=== PATIENT | male | born 1955 | race Hispanic/Latino ===

== ENCOUNTER 2016-08-03 01:09 | Inpatient (IN) | payer OTHER ==
[2016-08-03] MEDS ORDERED: TDAP Vaccine 0.5 mL Syr IM ONE (01:58)
[2016-08-03] MEDS ORDERED: Sodium Chloride 0.9% 1,000 ML IV STA (01:58)
--- NOTE | 2016-08-03 02:00 | ED PDOC ---
Upper Extremity Pain/Injury Time Seen by Provider: 08/03/16 01:53 Chief Complaint (Nursing): Upper Extremity Problem/Injury Chief Complaint (Provider): wrist injury History Per: Patient Additional Complaint(s): 61-year-old right-hand dominant male presents with pain and swelling to right wrist status post trip and fall while riding skateboard. Patient denies head injury or loss of consciousness. He tried to break his fall by placing right arm out in front of him causing injury to right wrist in the process. Patient came right emergency department after injury. He has severe pain to right wrist but denies any numbness or tingling. Past Medical History Reviewed: Historical Data, Nursing Documentation, Vital Signs Vital Signs: Last Vital Signs Temp 98.1 F 08/03/16 01:21 Pulse 78 08/03/16 01:21 Resp 18 08/03/16 01:21 BP 141/62 08/03/16 01:21 Pulse Ox 98 08/03/16 01:21 - Medical History PMH: No Chronic Diseases - Surgical History Surgical History: Appendectomy - Family History Family History: States: No Known Family Hx - Living Arrangements Living Arrangements: Alone - Social History Current smoker - smoking cessation education provided: No Alcohol: Social Drugs: Denies - Home Medications Home Medications: Ambulatory Orders Medication Instructions Recorded No Known Home Med 08/03/16 - Allergies Allergies/Adverse Reactions: Allergies Allergy/AdvReac Type Severity Reaction Status Date / Time No Known Allergies Allergy Verified 08/15/14 12:42 Review of Systems ROS Statement: Except As Marked, All Systems Reviewed And Found Negative Musculoskeletal: Positive for: Other (right wrist injury s/p trip and fall ) Neurological: Positive for: Other (denies head injury or LOC) Physical Exam - Reviewed Nursing Documentation Reviewed: Yes Vital Signs Reviewed: Yes - Physical Exam Appears: Positive for: Well, Non-toxic, No Acute Distress Head Exam: Positive for: ATRAUMATIC, NORMAL INSPECTION Skin: Negative for: Rash Eye Exam: Positive for: Normal appearance Neck: Positive for: Painless ROM Cardiovascular/Chest: Positive for: Regular Rate, Rhythm Respiratory: Positive for: Normal Breath Sounds Extremity: Positive for: Other (obvious deformity noted to right wrist, palpable radial pulse, normal cap refill, normal distal sensation, superficial laceration noted to palmar aspect of right wrist with no active bleeding) Neurologic/Psych: Positive for: Alert, Oriented - Laboratory Results Result Diagrams: 08/03/16 04:29 08/03/16 04:29 - ECG Interpretation Of ECG: NSR 78 bpm, no acute finding, reviewed by PA and ED attending. O2 Sat by Pulse Oximetry: 98 Pulse Ox Interpretation: Normal - Other Rad Right wrist x-ray X-Ray: Interpreted by Me, Viewed By Me X-Ray Interpretation: impacted communited distal radius fracture CT right wrist X-Ray: Read By Radiologist X-Ray Interpretation: see below Bedside chest X-Ray: Interpreted by Me, Viewed By Me X-Ray Interpretation: no acute finding Medical Decision Making Medical Decision Makin61 year old male with right wrist injury Plan: CBC CMP PT/PTT Type and Screen X-ray right wrist and forearm CT right wrist IVF IV zofran and morphine CXR EKG IV ancef CT: There is subcutaneous soft tissue swelling and a small amount of subcutaneous air along the plantar aspect of the wrist. There are mild degenerative changes. There is a fracture of the ulnar styloid with a few tiny displaced fragments. There is a comminuted fracture of the distal radial diaphysis and metaphysis with dorsal angulation. (Colles' fracture). There is approximately 5 mm of impaction. There is approximately 4 mm of dorsal displacement of the distal radius. There are no fractures of the carpal bones identified. he visualized portions of the metacarpals appear intact. There are degenerative changes in the osseous structures. Impression: Comminuted distal radial fracture with dorsal angulation and impaction. Ulnar styloid fracture. PMD is Dr. Domingo in [facility]. Dr. Manjarrez, hospitalist to admit Case was d/w Dr. Pérez who states he will see patient in AM Patient is aware of and agrees with admission. Procedures - Splinting Location: Right wrist Pre-Made Type: sugar tong fiberglass splint secured with yoon wraps Progress: Wound to wrist was cleansed with NS and bacitracin and non-stick bandage applied prior to placement of orthoglass splint. Disposition - Clinical Impression Clinical Impression: Wrist fracture, right - Patient ED Disposition Is Patient to be Admitted: Yes - Disposition Disposition Time: 05:46 Condition: FAIR - Pt Status Changed To: Hospital Disposition Of: Inpatient - Admit Certification Admit to Inpatient:: After my assessment, the patient will require hospitalization for at least two midnights. This is because of the severity of symptoms shown, intensity of services needed, and/or the medical risk in this patient being treated as an outpatient. - POA Present On Arrival: None Results - Lab Results Lab Results: 08/03/16 08/03/16 04:29 04:29 WBC 7.8 RBC 5.16 Hgb 15.9 Hct 45.4 MCV 88.1 MCH 30.8 MCHC 34.9 RDW 12.5 Plt Count 147 MPV 8.4 Neut % (Auto) 70.3 Lymph % (Auto) 20.2 [place] % (Auto) 7.8 Eos % (Auto) 0.7 Baso % (Auto) 1.0 Neut # 5.5 Lymph # 1.6 [place] # 0.6 Eos # 0.1 Baso # 0.1 Sodium 138 Potassium 4.3 Chloride 103 Carbon Dioxide 22 Anion Gap 17 BUN 19 Creatinine 1.0 Est GFR ( Amer) > 60 Est GFR (Non-Af Amer) > 60 Random Glucose 83 Calcium 9.5 Total Bilirubin 1.1 AST 61 H D ALT 50 Alkaline Phosphatase 72 Total Protein 7.3 Albumin 4.7 Globulin 2.7 Albumin/Globulin Ratio 1.7
--- NOTE | 2016-08-03 04:19 | CT ---
EXAM: CT Right Upper Extremity Without Intravenous Contrast, Wrist CLINICAL HISTORY: 61 years old, male; Injury or trauma; Fall; Initial encounter; Fracture, traumatic injury; Open fracture, severity classification not provided; Wrist; Right; Bone fracture not specified; Injury date: 08/03/16; Additional info: Assess wrist fracture TECHNIQUE: Axial computed tomography images of the right wrist without intravenous contrast. This CT exam was performed using one or more of the following dose reduction techniques: automated exposure control, adjustment of the mA and/or kV according to patient size, and/or use of iterative reconstruction technique. Coronal and sagittal reformatted images were created and reviewed. EXAM DATE/TIME: 08/03/2016 2:44 AM COMPARISON: No relevant prior studies available. FINDINGS: There is subcutaneous soft tissue swelling and a small amount of subcutaneous air along the plantar aspect of the wrist. There are mild degenerative changes. There is a fracture of the ulnar styloid with a few tiny displaced fragments. There is a comminuted fracture of the distal radial diaphysis and metaphysis with dorsal angulation (Colles' fracture). There is approximately 5 mm of impaction. There is approximately 4 mm of dorsal displacement of the distal radius. There are no fractures of the carpal bones identified. The visualized portions of the metacarpals appear intact. There are degenerative changes in the osseous structures. IMPRESSION: Comminuted distal radial fracture with dorsal angulation and impaction. Ulnar styloid fracture.
[2016-08-03 04:32] LABS: BASO # 0.1 K/uL (0.0-0.2); EOS # 0.1 K/uL (0.0-0.7); EOS % 0.7 % (0.0-4.0); HEMATOCRIT 45.4 % (35.0-51.0); LYMPH # 1.6 K/uL (1.0-4.3); LYMPH % 20.2 % (20.0-40.0); MEAN CELL VOLUME 88.1 fl (80.0-94.0); MEAN CORPUSCULAR HEMOGLOBIN 30.8 pg (27.0-31.0); MEAN CORPUSCULAR HGB CONC 34.9 g/dL (33.0-37.0); MEAN PLATELET VOLUME 8.4 fl (7.2-11.7); MONO # 0.6 K/uL (0.0-0.8); MONO % 7.8 % (0.0-10.0); NEUT # 5.5 K/uL (1.8-7.0); NEUT % 70.3 % (50.0-75.0); NRBC % 0.1 % (0.0-0.0); RED CELL DISTRIBUTION WIDTH 12.5 % (11.5-14.5); WHITE BLOOD COUNT 7.8 K/uL (4.8-10.8)
[2016-08-03 04:43] LABS: ALB/GLOB RATIO 1.7 (1.0-2.1); ALKALINE PHOSPHATASE 72 U/L (38-126); ALT/SGPT 50 U/L (21-72); AST/SGOT 61 U/L (17-59); BILIRUBIN,TOTAL 1.1 mg/dl (0.2-1.3); BLOOD UREA NITROGEN 19 mg/dl (9-20); CALCIUM 9.5 mg/dL (8.4-10.2); CARBON DIOXIDE 22 mmol/L (22-30); CHLORIDE 103 mmol/L (98-107); GFR AFRICAN-AMERICAN > 60; GLUCOSE,RANDOM 83 mg/dL (75-110); POTASSIUM 4.3 MMOL/L (3.6-5.0); SODIUM 138 mmol/l (132-148); TOTAL PROTEIN 7.3 G/DL (6.3-8.2)
--- NOTE | 2016-08-03 05:11 | CP.PCM.HP ---
History of Present Illness - History of Present Illness History of Present Illness: PCP: Not on staff Chief Complaint: Fall with right wrist trauma HPI: 61 years old male with no significant past medical history, comes after falling off his skate board receiving trauma and swelling to the right wrist. He attempted to break the fall with outstretched right hand. No loss of consciousness, no dizziness, nausea, vomit. PMH: DVT of the right lower extremity; BPH; Fracture C7; Fracture Left Clavicle 1973; Left ear injury PSH: Appendectomy SH: Former Smoker; occasional Alcohol; No illegal drug use; Live with family; [employer] FH: No known family history Allergies: NKDA Medicine: None Present on Admission - Present on Admission Any Indicators Present on Admission: No History of DVT/PE: No History of Uncontrolled Diabetes: No Urinary Catheter: No Decubitus Ulcer Present: No Review of Systems - Constitutional Constitutional: absent: Fever, Headache, Lethargy - EENT Eyes: Requires Corrective Lenses. absent: Diplopia, Floaters, Photophobia, Sees Flashes Ears: absent: Decreased Hearing, Ear Discharge, Ear Pain, Tinnitus Nose/Mouth/Throat: absent: Epistaxis, Nasal Congestion, Nasal Discharge - Cardiovascular Cardiovascular: absent: Chest Pain, Dyspnea, Edema - Respiratory Respiratory: absent: Cough, Dyspnea, Wheezing - Gastrointestinal Gastrointestinal: absent: Abdominal Pain, Constipation, Diarrhea, Nausea, Vomiting - Genitourinary Genitourinary: absent: Dysuria, Flank Pain, Urinary Frequency, Freq UTI - Musculoskeletal Additional comments: Pain to the left wrist post fall, continuous and increase with any left wrist movement - Integumentary Integumentary: absent: Pruritus, Rash, Skin Ulcer, Sores, Striae, Swelling - Neurological Neurological: absent: Confusion, Focal Weakness, Headaches, Paresthesias, Vertigo, Weakness - Psychiatric Psychiatric: absent: Anxiety, Change in Appetite, Confusion, Depression, Panic Attacks - Endocrine Endocrine: absent: Palpitations, Polydipsia, Polyphagia, Polyuria - Hematologic/Lymphatic Hematologic: absent: Easy Bleeding, Easy Bruising Past Patient History - Past Medical History & Family History Past Medical History?: Yes - Past Social History Smoking Status: Former Smoker Alcohol: Social Drugs: Denies Home Situation {Lives}: With Family - CARDIAC Hx Cardiac Disorders: No - PULMONARY Hx Respiratory Disorders: No - NEUROLOGICAL Hx Neurological Disorder: No - HEENT Hx HEENT Problems: No - RENAL Hx Chronic Kidney Disease: No - ENDOCRINE/METABOLIC Hx Endocrine Disorders: No - HEMATOLOGICAL/ONCOLOGICAL Hx Blood Disorders: No Other/Comment: DVT left leg - INTEGUMENTARY Hx Dermatological Problems: No - MUSCULOSKELETAL/RHEUMATOLOGICAL Other/Comment: Fx C7; Fx Clavicular; left ear injury - GASTROINTESTINAL Hx Gastrointestinal Disorders: No - GENITOURINARY/GYNECOLOGICAL Hx Genitourinary Disorders: No - PSYCHIATRIC Hx Substance Use: No - SURGICAL HISTORY Hx Appendectomy: Yes - ANESTHESIA Hx Anesthesia: Yes Hx Anesthesia Reactions: No Meds Allergies/Adverse Reactions: Allergies Allergy/AdvReac Type Severity Reaction Status Date / Time No Known Allergies Allergy Verified 08/15/14 12:42 Physical Exam - Constitutional Appears: No Acute Distress - Head Exam Head Exam: ATRAUMATIC, NORMAL INSPECTION, NORMOCEPHALIC - Eye Exam Eye Exam: EOMI, Normal appearance Pupil Exam: NORMAL ACCOMODATION, PERRL - ENT Exam ENT Exam: Mucous Membranes Moist, Normal Exam, Normal External Ear Exam, Normal Oropharynx - Neck Exam Neck exam: Positive for: Full Rom, Normal Inspection. Negative for: Lymphadenopathy, Tenderness - Respiratory Exam Respiratory Exam: Clear to Auscultation Bilateral. absent: Rales, Rhonchi, Wheezes, Stridor - Cardiovascular Exam Cardiovascular Exam: REGULAR RHYTHM, RRR, +S1, +S2. absent: JVD - GI/Abdominal Exam GI & Abdominal Exam: Normal Bowel Sounds, Organomegaly, Soft. absent: Tenderness - Rectal Exam Rectal Exam: Deferred - Extremities Exam Additional comments: left wrist swollen, deformed, tender on flexion and extension. Small open wound at right wrist. - Back Exam Back exam: NORMAL INSPECTION. absent: CVA tenderness (L), CVA tenderness (R) - Neurological Exam Neurological exam: Alert, CN II-XII Intact, Oriented x3, Reflexes Normal - Psychiatric Exam Psychiatric exam: Normal Affect, Normal Mood - Skin Skin Exam: Dry, Intact, Normal Color, Warm Results - Vital Signs Recent Vital Signs: Last Vital Signs Temp 98.1 F 08/03/16 01:21 Pulse 78 08/03/16 01:21 Resp 18 08/03/16 01:21 BP 141/62 08/03/16 01:21 Pulse Ox 98 08/03/16 05:01 - Labs Result Diagrams: 08/03/16 04:29 08/03/16 04:29 Labs: Laboratory Results - last 24 hr 08/03/16 08/03/16 04:29 04:29 WBC 7.8 RBC 5.16 Hgb 15.9 Hct 45.4 MCV 88.1 MCH 30.8 MCHC 34.9 RDW 12.5 Plt Count 147 MPV 8.4 Neut % (Auto) 70.3 Lymph % (Auto) 20.2 [place] % (Auto) 7.8 Eos % (Auto) 0.7 Baso % (Auto) 1.0 Neut # 5.5 Lymph # 1.6 [place] # 0.6 Eos # 0.1 Baso # 0.1 Sodium 138 Potassium 4.3 Chloride 103 Carbon Dioxide 22 Anion Gap 17 BUN 19 Creatinine 1.0 Est GFR ( Amer) > 60 Est GFR (Non-Af Amer) > 60 Random Glucose 83 Calcium 9.5 Total Bilirubin 1.1 AST 61 H D ALT 50 Alkaline Phosphatase 72 Total Protein 7.3 Albumin 4.7 Globulin 2.7 Albumin/Globulin Ratio 1.7 - Imaging and Cardiology X-Ray Right Wrist Status: Image reviewed by me Additional comment: Distal Humerus Comminuted Fracture Chest x-ray Status: Image reviewed by me Additional comment: No infiltrates Assessment & Plan - Assessment and Plan (Free Text) Assessment: #. Right wrist open Comminuted Plan: 61 years old male with no significant past medical history, comes after falling off his skate board receiving trauma and swelling to the right wrist. He attempted to break the fall with outstretched right hand. No loss of consciousness, no dizziness, nausea, vomit. #. Right wrist open Comminuted at distal radius and at right Ulna Bijanois - consult Dr Pérez orthopedic - NPO - IV Fluid NS at 100ml/hr - Pain management #.Hx of left leg DVT #. DVT prophylaxis post surgery #. Code Status: Full Patient with minor cardiovascular and Pulmonary risks , is cleared for surgery. - Date & Time Date: 08/03/16 Time: 05:11
[2016-08-03] MEDS ORDERED: ceFAZolin 1 GM in Sodium Chloride 0.9% 100 ML IVPB STA (05:30)
[2016-08-03] MEDS ORDERED: Dextrose 5%/0.9% NS 1,000 ML IV SCH (05:45)
[2016-08-03] MEDS: Sodium Chloride 0.9% 1,000 ML IV SCH ×2 (05:56→18:42)
[2016-08-03 06:18] LABS: PARTIAL THROMBOPLASTIN TIME 28.4 SECONDS (23.3-32.5)
--- NOTE | 2016-08-03 08:52 | RAD ---
HISTORY: clearance COMPARISON: None available. TECHNIQUE: Chest, one view. FINDINGS: LUNGS: Biapical pleural thickening. No focal consolidation. Please note that chest x-ray has limited sensitivity for the detection of pulmonary masses. PLEURA: No significant pleural effusion identified. No definite pneumothorax . CARDIOVASCULAR: Heart size appears top normal. Ectatic aorta. Right peritracheal opacity of uncertain etiology, possibly related to tortuous vasculature. OSSEOUS STRUCTURES: No acute osseous abnormality identified. VISUALIZED UPPER ABDOMEN: Unremarkable. OTHER FINDINGS: None. IMPRESSION: Right peritracheal opacity of uncertain etiology, possibly related to tortuous vasculature. Correlate clinically.
[2016-08-03 09:43] LABS: RBC URINE 2 /hpf (0-3); URINE BACTERIA RARE (<OCC); URINE BILIRUBIN NEGATIVE (NEGATIVE); URINE BLOOD NEGATIVE (NEGATIVE); URINE COLOR YELLOW (YELLOW); URINE GLUCOSE (UA) NEG (Normal); URINE KETONE TRACE mg/dL (NEGATIVE); URINE LEUKOCYTE ESTERASE NEG Leu/uL (Negative); URINE PROTEIN NEGATIVE (NEGATIVE); URINE UROBILINOGEN 0.2-1.0 mg/dL (0.2-1.0); WBC URINE < 1 /hpf (0-5)
--- NOTE | 2016-08-03 10:31 | RAD ---
PROCEDURE: Single lateral view right forearm Two views, right wrist HISTORY: trauma COMPARISON: No prior TECHNIQUE: Frontal and lateral views obtained. FINDINGS: Osseous demineralization. Degenerative changes. Comminuted impacted fracture deformity of the distal radius. Ulnar styloid fracture. Soft tissue swelling. No evidence of radiopaque foreign body. IMPRESSION: Comminuted impacted fracture deformity of the distal radius. Ulnar styloid fracture. Soft tissue swelling.
--- NOTE | 2016-08-03 10:42 | CP.PCM.CON ---
History of Present Illness - History of Present Illness History of Present Illness: ID: 61 yo male CC: pain and deformity R wrist HPI: pt a 61 yo R handed male who prsents after skateboarding accident. 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 wrist Pt presents with a comminuted displaced distal radius fracture Pt admitted with complex comminuted distal radius / ulna fx Pt admitted for IV abio's ( small tension break in skin) Past Patient History - Past Medical History & Family History Past Medical History?: Yes - Past Social History Smoking Status: Former Smoker Alcohol: Social Drugs: Denies Home Situation {Lives}: With Family - CARDIAC Hx Cardiac Disorders: No Other/Comment: pt with hx of havingcoded on OR table during appendectomy - PULMONARY Hx Respiratory Disorders: No - NEUROLOGICAL Hx Neurological Disorder: No - HEENT Hx HEENT Problems: No - RENAL Hx Chronic Kidney Disease: No - ENDOCRINE/METABOLIC Hx Endocrine Disorders: No - HEMATOLOGICAL/ONCOLOGICAL Hx Blood Disorders: No - INTEGUMENTARY Hx Dermatological Problems: No - MUSCULOSKELETAL/RHEUMATOLOGICAL Other/Comment: Fx C7; Fx Clavicular; left ear injury - GASTROINTESTINAL Hx Gastrointestinal Disorders: No - GENITOURINARY/GYNECOLOGICAL Hx Genitourinary Disorders: No - PSYCHIATRIC Hx Substance Use: No - SURGICAL HISTORY Hx Appendectomy: Yes - ANESTHESIA Hx Anesthesia: Yes Hx Anesthesia Reactions: No Meds Allergies/Adverse Reactions: Allergies Allergy/AdvReac Type Severity Reaction Status Date / Time No Known Allergies Allergy Verified 08/15/14 12:42 - Medications Medications: Current Medications Sodium Chloride (Sodium Chloride 0.9%) 1,000 mls @ 100 mls/hr IV .Q10H BRIDGETT Stop: 08/04/16 05:33 Last Admin: 08/03/16 05:56 Dose: 100 mls/hr Morphine Sulfate (Morphine) 4 mg IVP Q4 PRN PRN Reason: Pain, severe (8-10) Morphine Sulfate (Morphine) 2 mg IVP Q4 PRN PRN Reason: Pain, moderate (4-7) Ondansetron HCl (Zofran Inj) 4 mg IVP Q4 PRN PRN Reason: Nausea/Vomiting Physical Exam - Additional Findings Additional findings: Objective exam- wnl Musculoskekeltal stance/gait- defrred R upper ext immobilized in posterior splint N/V intact no gross/progressive deficits Xray- displaced /comminuted distal radius/ uln fx Results - Vital Signs Recent Vital Signs: Last Vital Signs Temp 98.5 F 08/03/16 08:34 Pulse 67 08/03/16 08:34 Resp 20 08/03/16 08:34 BP 137/77 08/03/16 08:34 Pulse Ox 96 08/03/16 08:34 - Labs Result Diagrams: 08/03/16 04:29 08/03/16 04:29 Labs: Laboratory Results - last 24 hr 08/03/16 08/03/16 05:57 09:00 Urine Color Yellow Urine Clarity Clear Urine pH 6.0 Ur Specific [place] 1.013 Urine Protein Negative Urine Glucose (UA) Neg Urine Ketones Trace Urine Blood Negative Urine Nitrate Negative Urine Bilirubin Negative Urine Urobilinogen 0.2-1.0 Ur Leukocyte Esterase Neg Urine RBC (Auto) 2 Urine Microscopic WBC < 1 Ur Squamous Epith Cells < 1 Urine Bacteria Rare Blood Type O POSITIVE Antibody Screen Negative BBK History Checked No verified bt - Imaging and Cardiology X-Ray Right Wrist Additional comment: Imaging Xray- displaced/comminuted distal radius fracture Assessment & Plan - Assessment and Plan (Free Text) Assessment: A- displaced/comminuted distal radius fracture fx accompanied by small tension break in skin ( covered with Ancef) P- cardiologic clearance no evidence fo local sepsis or compartmemnt syndrome hand is still too swollen for surgewry today will elevate awaiting cardiologic clearance ( pt has past hx of having coded on table during appendectomy in past)case discussed with DR Waddell- recommends anticoagual; tion and echo- pending clearnce for surg FRIDAY will continue IV abios until then
[2016-08-03] MEDS: Enoxaparin 40 mg Syringe SC SCH (11:55)
--- NOTE | 2016-08-03 12:08 | CARD ---
APPROVED REPORT EXAM: Two-dimensional and M-mode echocardiogram with Doppler and color Doppler. Other Information Quality : GoodRhythm : NSR INDICATION Pre-Op 2D DIMENSIONS RVDd3.01 (2.9-3.5cm)Left Atrium (2D)2.87 (1.6-4.0cm) IVSd1.10 (0.7-1.1cm)Aortic Root (2D)3.26 (2.0-3.7cm) LVDd4.51 (3.9-5.9cm)PWd0.96 (0.7-1.1cm) IVSs1.47 (0.8-1.2cm)LVDs2.79 (2.5-4.0cm) FS (%) 38.2 %PWs1.46 (0.8-1.2cm) LVEF (%)68.0 (>50%) M-Mode DIMENSIONS Left Atrium (MM)3.47 (2.5-4.0cm)IVSd1.35 (0.7-1.1cm) Aortic Root2.97 (2.2-3.7cm)LVDd4.50 (4.0-5.6cm) Aortic Cusp Exc.2.18 (1.5-2.0cm)PWd0.97 (0.7-1.1cm) MV EPSS0.5 (<0.5cm)IVSs1.82 cm FS (%) 36 %LVDs2.88 (2.0-3.8cm) PWs1.44 cmLVEF (%)65 (>50%) Mitral Valve E/A ratio0.0 TDI Lateral E' Peak V9.61cm/sMedial E' Peak V8.47cm/sE/Lateral E'0.0 E/Medial E'0.0 Tricuspid Valve TR Peak [id number] Peak Gr.32mmHg [id number] LEFT VENTRICLE The left ventricle is normal size. There is normal left ventricular wall thickness. The left ventricular function is normal. The left ventricular ejection fraction is within the normal range. There is normal LV segmental wall motion. Transmitral Doppler flow pattern is Grade I-abnormal relaxation pattern. RIGHT VENTRICLE The right ventricle is normal size. There is normal right ventricular wall thickness. The right ventricular systolic function is normal. ATRIA The left atrium size is normal. The right atrium size is normal. AORTIC VALVE The aortic valve is mildly thickened. No aortic regurgitation is present. There is no aortic valvular stenosis. MITRAL VALVE The mitral valve is mildly thickened. There is no mitral valve stenosis. There is no mitral valve regurgitation noted. TRICUSPID VALVE The tricuspid valve is normal in structure There is mild pulmonary hypertension. PULMONIC VALVE The pulmonary valve is normal in structure and function. There is no pulmonic valvular regurgitation. GREAT VESSELS The aortic root is normal in size. The IVC is normal in size and collapses >50% with inspiration. PERICARDIAL EFFUSION The pericardium appears normal. <Conclusion> The left ventricle is normal size. There is normal left ventricular wall thickness. The left ventricular function is normal. The left ventricular ejection fraction is within the normal range. There is normal LV segmental wall motion. There is mild pulmonary hypertension.
[2016-08-03] MEDS ORDERED: HYDROmorphone 0.5 mg/0.5 ml ISec IVP ONE (12:28)
--- NOTE | 2016-08-03 13:06 | CARD ---
APPROVED REPORT EKG Measurement Heart [id number] <Conclusion> Normal sinus rhythm Normal ECG
[2016-08-04] MEDS: Sodium Chloride 0.9% 1,000 ML IV SCH (02:00)
[2016-08-04] MEDS: Enoxaparin 40 mg Syringe SC SCH (08:39)
--- NOTE | 2016-08-04 10:40 | CP.PCM.PN ---
Subjective - Date & Time of Evaluation Date of Evaluation: 08/04/16 Time of Evaluation: 10:40 - Subjective Subjective: seen examined bedside no complaints pain controlled no cp no sob vitals stable no acute distress Objective - Vital Signs/Intake and Output Vital Signs (last 24 hours): Temp Pulse Resp BP Pulse Ox 99.1 F 64 20 131/83 96 08/04/16 08:16 08/04/16 08:16 08/04/16 08:16 08/04/16 08:16 08/04/16 08:16 - Medications Medications: Current Medications Enoxaparin Sodium (Lovenox) 40 mg SC DAILY BRIDGETT PRN Reason: Protocol Last Admin: 08/04/16 08:39 Dose: 40 mg Morphine Sulfate (Morphine) 4 mg IVP Q4 PRN PRN Reason: Pain, severe (8-10) Last Admin: 08/03/16 17:05 Dose: 4 mg Morphine Sulfate (Morphine) 2 mg IVP Q4 PRN PRN Reason: Pain, moderate (4-7) Last Admin: 08/04/16 09:27 Dose: 2 mg Ondansetron HCl (Zofran Inj) 4 mg IVP Q4 PRN PRN Reason: Nausea/Vomiting Last Admin: 08/03/16 20:21 Dose: 4 mg - Labs Labs: PT 11.2 SECONDS (9.6-11.2) 08/03/16 05:12 INR 1.08 (0.92-1.08) 08/03/16 05:12 APTT 28.4 SECONDS (23.3-32.5) 08/03/16 05:12 - Constitutional Appears: Non-toxic, No Acute Distress - Head Exam Head Exam: ATRAUMATIC, NORMOCEPHALIC - Eye Exam Eye Exam: EOMI, Normal appearance, PERRL Pupil Exam: NORMAL ACCOMODATION - ENT Exam ENT Exam: Mucous Membranes Moist, Normal Oropharynx - Neck Exam Neck Exam: Full ROM, Normal Inspection - Respiratory Exam Respiratory Exam: Clear to Ausculation Bilateral, NORMAL BREATHING PATTERN - Cardiovascular Exam Cardiovascular Exam: RRR, +S1, +S2 - GI/Abdominal Exam GI & Abdominal Exam: Soft. absent: Tenderness, Mass, Organomegaly - Extremities Exam Extremities Exam: Normal Capillary Refill. absent: Calf Tenderness Additional comments: nv intact L wrist, arm sling - Back Exam Back Exam: absent: CVA tenderness (L), CVA tenderness (R) - Neurological Exam Neurological Exam: Alert, Awake, Oriented x3 - Psychiatric Exam Psychiatric exam: Normal Affect, Normal Mood - Skin Skin Exam: Dry, Normal Color, Warm Assessment and Plan - Assessment and Plan (Free Text) Plan: 61 years old male with no significant past medical history, comes after falling off his skate board receiving trauma and swelling to the right wrist. He attempted to break the fall with outstretched right hand. No loss of consciousness, no dizziness, nausea, vomit. Right wrist open Comminuted at distal radius and at right Ulna [place]lois - consult Dr Pérez orthopedic - NPO after midnight, for surgery tomorrow - IV Fluid NS at 100ml/hr - Pain management - Cardiology Dr. Waddell for preop evaluation - patient is low risk for low risk procedure Hx of left leg DVT DVT prophylaxis post surgery Code Status: Full
--- NOTE | 2016-08-04 11:20 | CP.PCM.PN ---
Subjective - Date & Time of Evaluation Date of Evaluation: 08/04/16 Time of Evaluation: 11:15 - Subjective Subjective: S: pain and restricted ROM R wrist/pt with numbness/ tingling R hand 1st 3 fingers R hand Objective - Vital Signs/Intake and Output Vital Signs (last 24 hours): Temp Pulse Resp BP Pulse Ox 99.1 F 64 20 131/83 96 08/04/16 08:16 08/04/16 08:16 08/04/16 08:16 08/04/16 08:16 08/04/16 08:16 - Medications Medications: Current Medications Enoxaparin Sodium (Lovenox) 40 mg SC DAILY BRIDGETT PRN Reason: Protocol Last Admin: 08/04/16 08:39 Dose: 40 mg Morphine Sulfate (Morphine) 4 mg IVP Q4 PRN PRN Reason: Pain, severe (8-10) Last Admin: 08/03/16 17:05 Dose: 4 mg Morphine Sulfate (Morphine) 2 mg IVP Q4 PRN PRN Reason: Pain, moderate (4-7) Last Admin: 08/04/16 09:27 Dose: 2 mg Ondansetron HCl (Zofran Inj) 4 mg IVP Q4 PRN PRN Reason: Nausea/Vomiting Last Admin: 08/03/16 20:21 Dose: 4 mg - Labs Labs: PT 11.2 SECONDS (9.6-11.2) 08/03/16 05:12 INR 1.08 (0.92-1.08) 08/03/16 05:12 APTT 28.4 SECONDS (23.3-32.5) 08/03/16 05:12 - Additional Findings Additional findings: Objective systemic as per DR Rouse and Dr Waddell Musculoskekltal stance/gait - defrred R upper ext immobilized in sugar tongs Xrays- displaced/comminuted displaced distal radius fx Assessment and Plan - Assessment and Plan (Free Text) Assessment: A- displaced/ comminhuted distal radius fx P- TO OR - in AM for ORIFdisplaced distal radius fx/ carpal tunnel release, release transverse carpal ligament
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
[2016-08-04] MEDS ORDERED: Potassium Ch 20mEq in D5-1/2NS 1,000 ML IV SCH (19:45)
[2016-08-04] MEDS: Dextrose 5%/0.45% NS 1,000 ML IV SCH (22:15)
[2016-08-05] MEDS: Dextrose 5%/0.45% NS 1,000 ML IV SCH ×2 (05:05→13:42)
[2016-08-05] MEDS ORDERED: Propofol 10 mg/ml Inj (20 ML) ONE (07:02)
[2016-08-05] MEDS ORDERED: Rocuronium 10 mg/ml (5 ml) ONE (07:03)
[2016-08-05] MEDS ORDERED: Midazolam 2 MG/2 ML VIAL ONE (07:03)
[2016-08-05] MEDS ORDERED: ePHEDrine 50 mg/ml Inj ONE (07:03)
[2016-08-05] MEDS ORDERED: Lidocaine 4% (Laryng-O-Jet) Kit MM ONE (07:04)
[2016-08-05] MEDS ORDERED: Succinylcholine 200 mg/10 ml Inj IV ONE (07:04)
[2016-08-05 07:31] LABS: HEMATOCRIT 44.3 % (35.0-51.0); MEAN CELL VOLUME 87.6 fl (80.0-94.0); MEAN CORPUSCULAR HEMOGLOBIN 30.6 pg (27.0-31.0); MEAN CORPUSCULAR HGB CONC 34.9 g/dL (33.0-37.0); RED CELL DISTRIBUTION WIDTH 12.7 % (11.5-14.5); WHITE BLOOD COUNT 6.8 K/uL (4.8-10.8)
[2016-08-05] MEDS ORDERED: Etomidate 20 mg/10ml Inj IV ONE (07:43)
[2016-08-05] MEDS ORDERED: Lactated Ringer's 1,000 ML IV ONE (07:48)
[2016-08-05 07:49] LABS: BLOOD UREA NITROGEN 12 mg/dl (9-20); CALCIUM 8.8 mg/dL (8.4-10.2); CARBON DIOXIDE 27 mmol/L (22-30); CHLORIDE 102 mmol/L (98-107); GFR AFRICAN-AMERICAN > 60; GLUCOSE,RANDOM 100 mg/dL (75-110); SODIUM 139 mmol/l (132-148)
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
[2016-08-05] MEDS ORDERED: Dexamethasone 4 mg/1 ml ONE (08:46)
[2016-08-05] MEDS ORDERED: Bacitracin Ointment 30 GM TUBE ONE (09:09)
[2016-08-05] MEDS ORDERED: Neostigmine Methylsulfate 3mg/3ml Syringe IV ONE (09:14)
[2016-08-05] MEDS ORDERED: Ropivacaine 0.5% 30ML IV ONE (09:59)
[2016-08-05] MEDS ORDERED: Lidocaine 1% Inj (20ml) ONE (10:00)
[2016-08-05] MEDS: Lactated Ringer's 1,000 ML IV SCH ×2 (12:58→19:44)
--- NOTE | 2016-08-05 14:11 | RAD ---
PROCEDURE: Right Wrist Radiographs. HISTORY: s/p ORIF rt distal radial COMPARISON: Preoperative examination 08/03/2016 FINDINGS: BONES: Anatomic alignment of major fracture fragments distal right radius identified. Endplate and 7 fenestrated screws identified. JOINTS: Normal. No dislocation. SOFT TISSUES: Normal. OTHER FINDINGS: None. IMPRESSION: Satisfactory postoperative status.
[2016-08-05] MEDS: ceFAZolin 2 GM in Sodium Chloride 0.9% 100 ML IVPB SCH ×2 (14:37→16:39)
[2016-08-05] MEDS ORDERED: Ampicillin/Sulbactam 1.5 GM in Sodium Chloride 0.9% 100 ML IVPB SCH (16:00)
[2016-08-05] MEDS ORDERED: Oxycodone/Acetaminophen 5/325 mg Tab PO STA (16:25)
--- NOTE | 2016-08-05 16:35 | RAD ---
PROCEDURE: Right Wrist Radiographs. HISTORY: JUST LATERAL IMAGE NEEDED FOR ORTHOPEDIST COMPARISON: 08/03/2016. FINDINGS: BONES: Dorsal angulation of the distal major fracture fragment. JOINTS: Normal. No dislocation. SOFT TISSUES: Soft tissue swelling without acute articular or osseous abnormality. OTHER FINDINGS: None. IMPRESSION: Dorsal angulation distal fracture fragment. Detail obscured by overlying fiberglass cast.
--- NOTE | 2016-08-05 16:55 | PCM.SURG1 ---
Surgeon's Initial Post Op Note - Surgeon's Notes Surgeon: Beto Waiter And Cashier: GURJIT Curry Type of Anesthesia: General Endo Anesthesia Administered By: DR Gonzales Pre-Operative Diagnosis: Displaced/angulated distal radius fx. carpal tunnel syndrome ( post traumatic) Operative Findings: Displaced/angulated distal radius fx. compression medial nerve at Carpal tunnel Post-Operative Diagnosis: as above Operation Performed: ORIF displaced/angulated distal radius fx. Median neuroplasty. irrigation/debridement open tension break on volar skin and primary closure. release/partial excisison transverse carpal ligamnet. partial median neurolysis/partial flexor tenosynovectomy. allograft bone graft. applx volar splint Specimen/Specimens Removed: callous/bone/epineurium/tenosynovium Estimated Blood Loss: EBL {In ML}: 5 Blood Products Given: N/A Drains Used: No Drains Post-Op Condition: Good Date of Surgery/Procedure: 08/05/16 Time of Surgery/Procedure: 08:25 (time in room/anaesthesia indcution time 07:48)
[2016-08-05 17:23] VITALS: RESP 18
--- NOTE | 2016-08-05 18:30 | CP.PCM.PN ---
Subjective - Date & Time of Evaluation Date of Evaluation: 08/05/16 Time of Evaluation: 18:00 - Subjective Subjective: Pt seen and examined. Had ORIF of Open Fracture of right distal radius and ulna this morning. Complained of severe pain on operative area. Objective - Vital Signs/Intake and Output Vital Signs (last 24 hours): Temp Pulse Resp BP Pulse Ox 98.2 F 82 18 140/83 96 08/05/16 18:00 08/05/16 18:00 08/05/16 18:00 08/05/16 18:00 08/05/16 18:00 Intake and Output: 08/05/16 08/05/16 06:59 18:59 Intake Total 1000 Balance 1000 - Medications Medications: Current Medications Dextrose/Sodium Chloride (Dextrose 5%/0.45% Ns 1000 Ml) 1,000 mls @ 125 mls/hr IV .Q8H [facility] Stop: 08/05/16 21:12 Last Admin: 08/05/16 13:42 Dose: Not Given Lactated Ringer's (Lactated Ringer's) 1,000 mls @ 125 mls/hr IV .Q8H [facility] Last Admin: 08/05/16 12:58 Dose: Not Given Cefazolin Sodium 2 gm/ Sodium (Chloride) 100 mls @ 100 mls/hr IVPB Q8 BRIDGETT Last Admin: 08/05/16 16:39 Dose: 100 mls/hr Morphine Sulfate (Morphine) 4 mg IVP Q4 PRN PRN Reason: Pain, severe (8-10) Last Admin: 08/05/16 13:43 Dose: 4 mg Ondansetron HCl (Zofran Inj) 4 mg IVP Q4 PRN PRN Reason: Nausea/Vomiting Last Admin: 08/03/16 20:21 Dose: 4 mg Oxycodone/Acetaminophen (Percocet 5/325 Mg Tab) 1 tab PO Q4 PRN PRN Reason: Pain, moderate (4-7) Stop: 08/08/16 13:39 - Labs Labs: 08/05/16 06:40 08/05/16 06:40 PT 11.2 SECONDS (9.6-11.2) 08/03/16 05:12 INR 1.08 (0.92-1.08) 08/03/16 05:12 APTT 28.4 SECONDS (23.3-32.5) 08/03/16 05:12 - Constitutional Appears: No Acute Distress - Head Exam Head Exam: ATRAUMATIC - Eye Exam Eye Exam: absent: Scleral icterus - ENT Exam ENT Exam: Mucous Membranes Moist - Neck Exam Neck Exam: absent: Meningismus - Respiratory Exam Respiratory Exam: absent: Rhonchi, Wheezes, Respiratory Distress - Cardiovascular Exam Cardiovascular Exam: REGULAR RHYTHM, +S1, +S2 - GI/Abdominal Exam GI & Abdominal Exam: Soft. absent: Tenderness - Rectal Exam Rectal Exam: Deferred - Extremities Exam Extremities Exam: Joint Swelling (right wrist in cast, exposed fingers mobile, no sensory deficit, no vascular deficit) - Neurological Exam Neurological Exam: Alert, Oriented x3 - Psychiatric Exam Psychiatric exam: Normal Affect - Skin Skin Exam: Dry, Intact Assessment and Plan (1) Wrist fracture, right Status: Acute - Assessment and Plan (Free Text) Assessment: 61 yo male with no significant PMH admitted because of open fracture of the right wrist sustained after falling from a skateboard. 1. Fracture, Right Wrist had ORIF of the right distal radius and ulna early today maintain immobilization of right arm and keep elevated CBC in am pain medication with Percocet 2 tabs q 4hrs PRN Ancef 2gm IV q 8hrs maybe discharged tomorrow as per Dr Pérez if pain is controlled
[2016-08-05] MEDS: Oxycodone/Acetaminophen 5/325 mg Tab PO PRN (21:58)
[2016-08-06] MEDS: ceFAZolin 2 GM in Sodium Chloride 0.9% 100 ML IVPB SCH ×2 (01:09→09:15)
[2016-08-06] MEDS ORDERED: Oxycodone/Acetaminophen 5/325 mg Tab PO STA ×2 (01:13→10:58)
[2016-08-06] MEDS: Lactated Ringer's 1,000 ML IV SCH ×2 (04:30→09:16)
[2016-08-06] MEDS: Oxycodone/Acetaminophen 5/325 mg Tab PO PRN ×2 (05:36→10:10)
[2016-08-06 07:59] VITALS: BP 136/81; PULSE 65; TEMP 98.3; O2SAT 95
--- NOTE | 2016-08-06 09:12 | OP ---
PROCEDURE DATE: 08/05/2016 PREOPERATIVE DIAGNOSIS: Displaced angulated distal radius fracture, right wrist. POSTOPERATIVE DIAGNOSES: 1. Displaced angulated distal radius fracture, right wrist. 2. Posttraumatic carpal tunnel syndrome. OPERATIVE FINDINGS: Displaced angulated distal radius fracture with compression of the median nerve at the carpal tunnel. OPERATIVE FINDINGS: Postoperative diagnoses as above. OPERATION PERFORMED: 1. ORIF displaced angulated distal radius fracture, right. 2. Median neuroplasty. 3. Irrigation and debridement open fracture, tension break on the posterior, on the volar aspect of the skin and primary closure, release excision transverse carpal ligament, partial median neurolysis, partial flexor tenosynovectomy, allograft bone graft, application of volar splint. SURGEON: Luke Pérez MD LENS EXAMINER: Parisa Bolivar, Certified Registered Nursing Home Comfort Advisor BLOOD LOSS: Approximately 5 mL. BLOOD PRODUCTS: None. DRAINS: None. POSTOPERATIVE CONDITION: Stable. TIME OF INCISION: 8:25 a.m. TIME IN THE ROOM: 7:48 a.m. 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 Pros, cons, risks and bene fits of open reduction internal fixation are discussed. The possibility of mechanical failure, infec tion, nerve injury, thromboembolic disease, secondary or tertiary surgery is discussed. The patient can no longer stand the discomfort. OPERATIVE PROCEDURE: After having obtained informed consent, after having identified side, site and procedure in a critical pause/timeout, after the satisfactory induction of the anesthetic, the patien t identified in the supine position with all bony prominences well padded, the right upper extremity is prepped and free draped in the usual fashion for upper extremity surgery. The tourniquet had been applied, but is not yet inflated. After exsanguinating the limb using a 4-inch Esmarch bandage, the tourniquet, which had been applied, is inflated to 250 mmHg. The operation is performed under eyegl ass magnification 2.5 times. After sterilely prepping and draping, an incision is described in the m edian palmar crease, deviating radially at the distal crease and deviating back ulnarly at the proxim al wrist crease. The skin incision is carried down. The incision is carried down in the interval be tween the flexor carpi radialis and the palmaris longus. Great care is taken to avoid injury to the radial artery. The skin incision is carried down through the skin and subcutaneous tissue. A flap i s elevated. The 2-0 Vicryl is employed to tag the flap. The palmar aponeurosis is divided. The ent breana extent of the transverse carpal ligament is divided. This having been accomplished, the interval between the flexor carpi radialis and the palmaris longus is developed. The distal radial fracture is identified. At this point in time, wrist arthrotomy is accomplished using a #15 blade and the fra cture site is identified and cleared of healing callus. It should be noted that prior to exposing th e fracture, the transverse carpal ligament is exposed. The transverse carpal ligament is exposed in its entirety and division of the transverse carpal ligament is accomplished. A portion of the transv erse carpal ligament is resected. A median neuroplasty is accomplished. The median nerve is identif ied. A partial median neurolysis is accomplished, partial flexor tenosynovectomy is accomplished. T he wound is thoroughly irrigated. The median nerve is found to be compressed A partial median neurol ysis is accomplished. There is found to be exuberant tenosynovitis. A partial flexor tenosynovectom y is accomplished. The wound is thoroughly irrigated. At this point in time, the wrist arthrotomy i s accomplished. The periosteal sleeve is elevated. The fracture is identified and curetted of heali ng callus. Using a quarter-inch osteotome, the fracture site is identified, curetted of healing call us and the fracture is reduced with flexion and ulnar deviation. At this point in time, the volar pl ate is applied and locking plate is applied to the volar aspect of the wrist. Each sequential drill hole is drilled, sounded with a depth gauge and the appropriate size screws are placed. Locking scre ws distally and only 1 nonlocking screw. The position is found to be acceptable. At this point in t tameka, allograft bone graft is applied to the fracture. The wound is thoroughly irrigated and then all ograft bone graft is applied to the fracture. Closure is in layers with interrupted Vicryl and nylon . Tourniquet had been deflated and hemostasis controlled. Intraoperative fluoroscopy reveals accept able position of the construct on AP and lateral image intensification views. In this way, open redu ction internal fixation of the displaced and angulated right distal radius fracture is accomplished. It should be noted that the patient has an ulnar styloid fracture as well. Closed reduction of the ulnar styloid fracture is accomplished. There is found to be evidence of an open fracture. There is a tension break in the skin volarly and this having been accomplished, using a #15 blade, this is as dawit from the incision. The skin incision is carried down through the skin and subcutaneous tissue. The wound is exposed and the skin margins are excised using a #15 blade. Thorough irrigation of the wound is accomplished. Primary closure is with interrupted nylon. At this point in time, Jay herrera compression dressing and volar splint is applied. Again, verification is offered on AP and latera l image intensification views. Postoperative x-rays reveal acceptable position of the construct. Luke Pérez MD cc: [id number] TT: 08/06/2016 09:12:03 en
--- NOTE | 2016-08-06 10:01 | CP.PCM.PN ---
Subjective - Date & Time of Evaluation Date of Evaluation: 08/06/16 Time of Evaluation: 08:30 - Subjective Subjective: NO COMPLAINTS EXCEPT FOR PAIN AT SURGICAL SITE Objective - Vital Signs/Intake and Output Vital Signs (last 24 hours): Temp Pulse Resp BP Pulse Ox 98.3 F 65 18 136/81 95 08/06/16 07:58 08/06/16 07:58 08/06/16 07:58 08/06/16 07:58 08/06/16 07:58 - Medications Medications: Current Medications Lactated Ringer's (Lactated Ringer's) 1,000 mls @ 125 mls/hr IV .Q8H [facility] Last Admin: 08/06/16 09:16 Dose: 125 mls/hr Cefazolin Sodium 2 gm/ Sodium (Chloride) 100 mls @ 100 mls/hr IVPB Q8 BRIDGETT Last Admin: 08/06/16 09:15 Dose: 100 mls/hr Morphine Sulfate (Morphine) 4 mg IVP Q4 PRN PRN Reason: Pain, severe (8-10) Last Admin: 08/05/16 13:43 Dose: 4 mg Ondansetron HCl (Zofran Inj) 4 mg IVP Q4 PRN PRN Reason: Nausea/Vomiting Last Admin: 08/03/16 20:21 Dose: 4 mg Oxycodone/Acetaminophen (Percocet 5/325 Mg Tab) 1 tab PO Q4 PRN PRN Reason: Pain, moderate (4-7) Stop: 08/08/16 13:39 Last Admin: 08/06/16 05:36 Dose: 1 tab - Labs Labs: 08/05/16 06:40 08/05/16 06:40 PT 11.2 SECONDS (9.6-11.2) 08/03/16 05:12 INR 1.08 (0.92-1.08) 08/03/16 05:12 APTT 28.4 SECONDS (23.3-32.5) 08/03/16 05:12 - Respiratory Exam Respiratory Exam: Clear to Ausculation Bilateral - Cardiovascular Exam Cardiovascular Exam: REGULAR RHYTHM, +S1, +S2 Assessment and Plan - Assessment and Plan (Free Text) Assessment: S/P ORIF OF RIGHT RADIUS FRACTURE PAST DVT HISTORY Plan: CONTINUE PRESENT TREATMENT LOVENOX ADDED DUE TO DVT HISTORY
[2016-08-06] MEDS ORDERED: Enoxaparin 40 mg Syringe SC SCH (10:15)
[2016-08-06] MEDS ORDERED: Oxycodone/Acetaminophen 5/325 mg Tab PO PRN (11:00)
--- NOTE | 2016-08-06 12:55 | RAD ---
PROCEDURE: Intraoperative Fluoroscopy. HISTORY: ORIF RIGHT DISTAL RADIUS FINDINGS: Fluoroscopic assistance was provided for Dr. Manjarrez Approximately 2.5 seconds of fluoroscopy time utilized for this procedure. Please refer to the operative report from
--- NOTE | 2016-08-06 14:06 | CP.PCM.DIS ---
Provider - Provider Date of Admission: 08/03/16 05:27 Attending physician: Migue Manjarrez Consults: Dr Pérez Time Spent in preparation of Discharge (in minutes): 30 Diagnosis - Discharge Diagnosis (1) Wrist fracture, right Status: Acute Comment: 1st POD, ORIF of the right Wrist. discharged in stable condition. Percocet 5/325 PO 2 tabs q 4hrs as needed for pain. Ceftin 500mg PO BID Hospital Course - Lab Results Lab Results: Most Recent Lab Values WBC 6.8 K/uL (4.8-10.8) 08/05/16 06:40 RBC 5.06 Mil/uL (4.40-5.90) 08/05/16 06:40 Hgb 15.5 g/dL (12.0-18.0) 08/05/16 06:40 Hct 44.3 % (35.0-51.0) 08/05/16 06:40 MCV 87.6 fl (80.0-94.0) 08/05/16 06:40 MCH 30.6 pg (27.0-31.0) 08/05/16 06:40 MCHC 34.9 g/dL (33.0-37.0) 08/05/16 06:40 RDW 12.7 % (11.5-14.5) 08/05/16 06:40 Plt Count 137 K/uL (130-400) 08/05/16 06:40 MPV 8.4 fl (7.2-11.7) 08/03/16 04:29 Neut % (Auto) 70.3 % (50.0-75.0) 08/03/16 04:29 Lymph % (Auto) 20.2 % (20.0-40.0) 08/03/16 04:29 Love % (Auto) 7.8 % (0.0-10.0) 08/03/16 04:29 Eos % (Auto) 0.7 % (0.0-4.0) 08/03/16 04:29 Baso % (Auto) 1.0 % (0.0-2.0) 08/03/16 04:29 Neut # 5.5 K/uL (1.8-7.0) 08/03/16 04:29 Lymph # 1.6 K/uL (1.0-4.3) 08/03/16 04:29 Love # 0.6 K/uL (0.0-0.8) 08/03/16 04:29 Eos # 0.1 K/uL (0.0-0.7) 08/03/16 04:29 Baso # 0.1 K/uL (0.0-0.2) 08/03/16 04:29 PT 11.2 SECONDS (9.6-11.2) 08/03/16 05:12 INR 1.08 (0.92-1.08) 08/03/16 05:12 APTT 28.4 SECONDS (23.3-32.5) 08/03/16 05:12 Sodium 139 mmol/l (132-148) 08/05/16 06:40 Potassium 4.0 MMOL/L (3.6-5.0) 08/05/16 06:40 Chloride 102 mmol/L (98-107) 08/05/16 06:40 Carbon Dioxide 27 mmol/L (22-30) 08/05/16 06:40 Anion Gap 13 (10-20) 08/05/16 06:40 BUN 12 mg/dl (9-20) 08/05/16 06:40 Creatinine 0.8 mg/dL (0.8-1.5) 08/05/16 06:40 Est GFR ( Amer) > 60 08/05/16 06:40 Est GFR (Non-Af Amer) > 60 08/05/16 06:40 Random Glucose 100 mg/dL (75-110) 08/05/16 06:40 Calcium 8.8 mg/dL (8.4-10.2) 08/05/16 06:40 Total Bilirubin 1.1 mg/dl (0.2-1.3) 08/03/16 04:29 AST 61 U/L (17-59) H D 08/03/16 04:29 ALT 50 U/L (21-72) 08/03/16 04:29 Alkaline Phosphatase 72 U/L (38-126) 08/03/16 04:29 Total Protein 7.3 G/DL (6.3-8.2) 08/03/16 04:29 Albumin 4.7 g/dL (3.5-5.0) 08/03/16 04:29 Globulin 2.7 gm/dL (2.2-3.9) 08/03/16 04:29 Albumin/Globulin Ratio 1.7 (1.0-2.1) 08/03/16 04:29 Urine Color Yellow (YELLOW) 08/03/16 09:00 Urine Clarity Clear (Clear) 08/03/16 09:00 Urine pH 6.0 (5.0-8.0) 08/03/16 09:00 Ur Specific [place] 1.013 (1.003-1.030) 08/03/16 09:00 Urine Protein Negative mg/dL (NEGATIVE) 08/03/16 09:00 Urine Glucose (UA) Neg mg/dL (Normal) 08/03/16 09:00 Urine Ketones Trace mg/dL (NEGATIVE) 08/03/16 09:00 Urine Blood Negative (NEGATIVE) 08/03/16 09:00 Urine Nitrate Negative (NEGATIVE) 08/03/16 09:00 Urine Bilirubin Negative (NEGATIVE) 08/03/16 09:00 Urine Urobilinogen 0.2-1.0 mg/dL (0.2-1.0) 08/03/16 09:00 Ur Leukocyte Esterase Neg [place]/uL (Negative) 08/03/16 09:00 Urine RBC (Auto) 2 /hpf (0-3) 08/03/16 09:00 Urine Microscopic WBC < 1 /hpf (0-5) 08/03/16 09:00 Ur Squamous Epith Cells < 1 /hpf (0-5) 08/03/16 09:00 Urine Bacteria Rare (<OCC) 08/03/16 09:00 Blood Type O POSITIVE 08/03/16 05:57 Blood Type Confirm O POSITIVE 08/03/16 06:41 Antibody Screen Negative 08/03/16 05:57 BBK History Checked No verified bt 08/03/16 05:57 - Hospital Course Hospital Course: 61 yo male with no significant PMH, came after falling off a skate board sustaining open fracture of the right wrist. Had ORIF the next day with Dr Pérez. Pt did well and discharged the following day with PO antibiotics and pain medications. Patient to follow up with his PCP and Dr Pérez. Discharge Exam - Head Exam Head Exam: ATRAUMATIC - Eye Exam Eye Exam: absent: Scleral icterus - ENT Exam ENT Exam: Mucous Membranes Moist - Respiratory Exam Respiratory Exam: absent: Wheezes, Respiratory Distress - Cardiovascular Exam Cardiovascular Exam: REGULAR RHYTHM, +S1, +S2 - GI/Abdominal Exam GI & Abdominal Exam: Soft. absent: Tenderness - Rectal Exam Rectal Exam: Deferred - Neurological Exam Neurological exam: Alert, Oriented x3 - Psychiatric Exam Psychiatric exam: Normal Affect - Skin Skin Exam: Dry, Intact Discharge Plan - Discharge Medications Prescriptions: Cefuroxime Axetil [Cefuroxime] 500 mg PO BID #14 tablet oxyCODONE/Acetaminophen [Percocet 5/325 mg Tab] 2 ea PO Q4 PRN #20 tab PRN Reason: Pain, Severe (8-10) - Follow Up Plan Condition: FAIR Disposition: HOME/ ROUTINE Instructions: Wrist Fracture in Adults (DC)
== END 2016-08-06 15:16 | disposition home or self-care (01) | DRG 502 ==
LOC: H.ER 01:09 → H.ERHOLD 05:09 → UNDOADMIN 05:09 → H.ERHOLD 05:27 → H.MEDSURG1 06:21
PROVIDERS: ADMIT Internal Medicine; ATTEND Internal Medicine
PROC: 0LB50ZZ Excision of Right Lower Arm and Wrist Tendon, Open Approach (ICD-10-PCS; 2016-08-05)
PROC: 01N50ZZ Release Median Nerve, Open Approach (ICD-10-PCS; 2016-08-05)
PROC: 0PUH07Z Supplement Right Radius with Autologous Tissue Substitute, Open Approach (ICD-10-PCS; 2016-08-05)
PROC: 0PSH04Z Reposition Right Radius with Internal Fixation Device, Open Approach (ICD-10-PCS; principal; 2016-08-05 07:45)
DX: S52.511A Displaced fracture of right radial styloid process, initial encounter for closed fracture (principal); S52.691A Other fracture of lower end of right ulna, initial encounter for closed fracture; G56.01 Carpal tunnel syndrome, right upper limb; M65.841 Other synovitis and tenosynovitis, right hand; N40.0 Benign prostatic hyperplasia without lower urinary tract symptoms; V00.131A Fall from skateboard, initial encounter; Z86.718 Personal history of other venous thrombosis and embolism; Z87.891 Personal history of nicotine dependence; Y93.51 Activity, roller skating (inline) and skateboarding; Y92.480 Sidewalk as the place of occurrence of the external cause